=== PATIENT | female | born 1960 | race Caucasian/White ===

== ENCOUNTER 2021-03-07 18:21 | Emergency (ER) | payer BC, SELFPAY ==
--- NOTE | ~2021-03-07 | XR_ITS ---
XR foot RT min 3V DATE: 03/07/2021 18:43 INDICATION: Fall 2 weeks ago. Right foot pain and swelling TECHNIQUE: 4 views COMPARISON: None FINDINGS: There is prominent hallux valgus and bunion deformity. 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 There is a comminuted fracture of the distal shaft of fifth metatarsal bone with 1.8 mm medial displa cement. IMPRESSION: Comminuted fracture of the distal shaft of the fifth metatarsal bone Reviewed, dictated and finalized at location A. IMPRESSION: Comminuted fracture of the distal shaft of the fifth metatarsal bon shanique
[2021-03-07 18:34] VITALS: BP 148/81; PULSE 92; RESP 16; TEMP 37.2; O2SAT 99
--- NOTE | 2021-03-07 19:17 | ED.LOWEXIN ---
HPI - Extremity Injury (Lower) General Chief Complaint: Extremity Injury, Lower Stated Complaint: INJURED R FOOT Source: patient and RN notes reviewed Limitations: no limitations History of Present Illness HPI Narrative: The patient, previously mostly healthy, presents with right foot pain. Patient states she slipped and fell down some steps close to 2 weeks ago. She complains of continued mild pain and swelling laterally that is worse with motion or activity better with rest or elevation. No bleeding, deformity; screening x-ray shows distal, fifth metatarsal fracture that is comminuted and displaced. Orthopedics history is remarkable for prior right hip replacement; advised patient to be nonweightbearing with crutches and splint and to see prior orthopedist or supply chain vice president. Related Data Home Medications Medication Instructions Recorded Confirmed [employer] Thyroid 03/07/21 Prozac 03/07/21 Allergies Allergy/AdvReac Type Severity Reaction Status Date / Time No Known Allergies Allergy Verified 03/07/21 18:34 Review of Systems Review of Systems: General/Constitutional: No weight loss,fever Eyes: N0: Redness,discharge Ears/Nose/Throat: No: Epistaxis,ear discharge Respiratory: Denies: Hemoptysis Gastrointestinal: No Vomiting, Bleeding-rectal Skin: No Lumps, eruption Neurologic: No Focal Weakness,Sz Hematologic: Denies: Petechiae/Purpura Psychiatric: No: Suicida ideationl All Other Systems: Reviewed and Negative PMFSH Comments At time of signature, agree with nursing past medical, surgical, social and family history. There is no relevant family history pertinent to the presenting complaint Exam Narrative: General Appearance: Well appearing, mild pain; conjunctiva clear Mouth/Throat: Normal appearing, Normal lips, Supple Respiratory: Airway patent, No respiratory distress MS-foot: Normal strength (mostly intact, limited flexion/extension by pain), Tenderness ( laterally, with mild decreased ROM), Swelling (laterally), Other (no anterior drawer, no collateral laxity, no Achilles tenderness,++o fifth MT tenderness) Skin: Warm, Dry, Normal color Neurological: A&O x3, , Normal affect Course Course Emergency Course: Films visualized, interpreted by radiologist, agree, ABnormal see report Vital Signs Vital signs: Vital Signs Temperature 98.9 F 03/07/21 18:34 Pulse Rate 92 03/07/21 18:34 Respiratory Rate 16 03/07/21 18:34 Blood Pressure 148/81 H 03/07/21 18:34 Pulse Oximetry 99 03/07/21 18:34 Temperature 98.9 F 03/07/21 18:34 Pulse Rate 92 03/07/21 18:34 Respiratory Rate 16 03/07/21 18:34 Blood Pressure 148/81 H 03/07/21 18:34 Pulse Oximetry 99 03/07/21 18:34 Discharge Plan Discharge Clinical Impression: Closed fracture of fifth metatarsal bone Qualifiers: Encounter type: initial encounter Fracture alignment: displaced Laterality: right Qualified Code(s): S92.351A - Displaced fracture of fifth metatarsal bone, right foot, initial encounter for closed fracture Patient Disposition: Home, Self-Care Condition: Improved Instructions: Foot Fracture in Adults (ED) Additional Instructions: Use crutches and splint and be nonweightbearing without fail See prior orthopedist or podiatry in follow-up without fail Prescriptions: New acetaminophen-codeine 300-30 mg tablet 1 - 1.5 tablet PO HS PRN (Reason: pain) Qty: 10 RF: 0 No Action [employer] HEL[employer] Thyroid RF: 0 Prozac RF: 0 Follow-up/Referrals: PHYSICIAN NOT ON STAFF,NONSTAFF [Primary Care Provider] -
== END 2021-03-07 19:47 | disposition home or self-care (01) ==
PROVIDERS: Emergency Provider Emergency Medicine
DX: S92.351A Displaced fracture of fifth metatarsal bone, right foot, initial encounter for closed fracture (principal); W10.9XXA Fall (on) (from) unspecified stairs and steps, initial encounter; E03.9 Hypothyroidism, unspecified
CPT/HCPCS: 29515; 73630; 99214; G0463